=== PATIENT | female | born 1980 | race African-American/Black ===

== ENCOUNTER 2016-11-12 20:30 | Emergency (ER) | payer SELFPAY ==
[~2016-11-12] VITALS: Ht 162.6 cm; Wt 90.0 kg
[2016-11-12 20:31] VITALS: BP 121/76; PULSE 74; RESP 16; TEMP 99.4; O2SAT 100
--- NOTE | 2016-11-12 21:15 | PD ---
Physical Exam Time Seen by Provider: 21:13 Narrative 36yo F c/o left breast lump x 3-4days. Painful. denies erythema, edema. Denies fever, vomiting. VSS. Patient seen in triage. Awaiting bed placement. Data Data Last Documented VS Vital Signs Date Time Temp Pulse Resp B/P Pulse Ox O2 Delivery O2 Flow Rate FiO2 11/12/16 20:31 99.4 74 16 121/76 100 Room Air MDM Supervised Visit with GHASSAN: Marialuisa Stokes Nov 12, 2016 21:15
[2016-11-12] MEDS ORDERED: CEPH-460 PO (21:42)
--- NOTE | 2016-11-12 21:47 | PD ---
HPI Chief Complaint: Lump, Cyst, Hernia Time Seen by Provider: 21:43 Travel History International Travel<30 days: No Contact w/Intl Traveler<30days: No Traveled to known affect area: No History of Present Illness HPI 36-year-old black female presents to emergency department with complains of a tender lump in her left breast which she has noted over last 3 or 4 days. She states that she does not typically get any gynecological care or breast exams by Dr. She states that her last exam was approximately 4 years ago. She does report that she doesn't monthly breast exam on her self. She has not noticed any masses or any lesions up until this most recent visit. She states that she noticed a area of tenderness in her left area left. She states that it felt nodular and tender to palpation. She denies any discharge or dimpling of the breast. She denies any recent illness. No fever chills. No axillary pain. She states it worse with palpation. There is no alleviating factors. No prior history of breast problems. She denies . [facility] Past Medical History Asthma: Yes (asthma as a child) Respiratory: Yes (ASTHMA) ?: Not LMP: 09/19/16 Past Surgical History Surgical History: No Previous Surgery Social History Alcohol Use: Yes Tobacco Use: No Allergies-Medications (Allergen,Severity, Reaction): Coded Allergies: No Known Allergies (Unverified , 11/12/16) Reported Meds & Prescriptions Reported Meds & Active Scripts Active No Active Prescriptions or Reported Medications Review of Systems Except as stated in HPI: all other systems reviewed are Neg Physical Exam Narrative GENERAL: This is a well-nourished, well-developed patient, in no apparent distress. The patient's examined with the nurse Mccullough present SKIN: No rashes, ecchymoses or lesions. Warm and dry. Examination of the left breast reveals no axillary or supraclavicular adenopathy. There is no dimpling or discharge from the nipple. She has a approximately 1 cm tender nodular density just under the skin of the 12:00 area left. It is tender to touch. It is mobile. There is no fluctuance. No pointing. The remainder the rest is unremarkable. HEAD: Atraumatic. Normocephalic. EYES: PERRL, EOMI, no discharge or injection. No scleral icterus. EARS: Clear NOSE: Nasal turbinates appear normal. THROAT: Mucosa pink and moist. Airway patent. NECK: Trachea midline. supple, moves head freely. LUNGS: Clear to auscultation. CV: Regular in rhythm. ABDOMEN: Soft nontender. EXT: No clubbing cyanosis or edema. Data Data Last Documented VS Vital Signs Date Time Temp Pulse Resp B/P Pulse Ox O2 Delivery O2 Flow Rate FiO2 11/12/16 20:31 99.4 74 16 121/76 100 Room Air MDM Medical Decision Making Medical Screen Exam Complete: Yes Emergency Medical Condition: Yes Medical Record Reviewed: Yes Differential Diagnosis MDM: High Differential diagnoses: Abscess, folliculitis, cellulitis, lymphangitis, abrasion, contact dermatitis, mastitis Narrative Course I believe this is a developing mastitis. I do not believe that this is a abscess. I suspect this is an infection in the glands/duct of the breast. She' ll be treated with antibiotics and she has been advised to follow-up with a playground monitor in the next 1-2 weeks for recheck. Diagnosis Primary Impression: Mastitis of left breast unrelated to or Patient Instructions: General Instructions Additional Instructions: Rest. Elevation. keep clean and dry. Warm compresses. Keflex Three Advil every 6 hours. Follow-up with a playground monitor in one week. Return to the ER for any problems. Med/Other Pt SpecificInfo: Prescription(s) given Scripts Cephalexin (Keflex)500 Mg Aub811 Mg PO Q6H #40 CAP Prov:Antonio Pollack MD 11/12/16 Disposition: 01 DISCHARGE HOME Condition: Stable Ollie Sarkar Nov 12, 2016 21:47
== END 2016-11-12 22:03 | disposition home or self-care (01) ==
LOC: NEPK 20:30
DX: N61.0 Mastitis without abscess (principal); Z87.19 Personal history of other diseases of the digestive system
CPT/HCPCS: 99282